=== PATIENT | male | born 1960 | race Caucasian/White ===

== ENCOUNTER 2017-04-12 13:50 | Emergency (ER) | payer BC, OTHER ==
[2017-04-12] MEDS ORDERED: KETOROLAC TROMETHAMINE 60 MG/2 ML VIAL IM ONE ×2 (14:25→14:26)
--- NOTE | 2017-04-12 14:31 | ERNOTE ---
Upper Extremity HPI - Narrative Date of Service: 04/12/17 - General Extremities Pain Location: shoulder: right Time Seen by Provider: 04/12/17 14:29 Source: patient Exam Limitations: no limitations - Immun/Allergies/Home Medications Immunizations: IMMUNIZATION HX Immunizations Up to Date Yes: unsure History of Influenza Vaccine Yes Hx Pneumococcal Vaccination No Allergies/Adverse Reactions: Allergies Allergy/AdvReac Type Severity Reaction Status Date / Time No Known Allergies Allergy Unverified 04/12/17 13:59 Home Medications: HOME MEDICATIONS Acetaminophen with Codeine [Tylenol with Codeine #3 Tablet] 1 - 2 tab PO Q6H PRN #14 tab 04/12/17 [Last Taken Unknown] Cetirizine HCl [Zyrtec] 10 mg PO DAILY PRN 04/12/17 [Last Taken Unknown] Ibuprofen [Motrin] 600 mg PO TID PRN #30 tab 04/12/17 [Last Taken Unknown] - History of Present Illness Narrative: FELL ON RIGHT SHOULDER [employer]STIT[employer] , PLAYING SOFTBALL. C/O RIGHT SHOULDER PAIN. Review of Systems - Review of Systems Constitutional: Present: See HPI Musculoskeletal: Present: See HPI, joint pain All Other Systems: All systems neg except as marked - Patient's Past Medical History Patient History - Medical: No pertinent hx Patient History - Cardiac/Respiratory: No pertinent hx Patient History - Cancer: No Hx of Cancer Patient History - Surgical Procedures: No surgical history Patient History - Other: None - Social History Living Situations: spouse Abuse History: No History of abuse Psych History: No pertinent hx Smoking Status: Never smoker Have you smoked in the past 12 months: No Do you dip or chew tobacco: No Alcohol Use: none Drug Use: none - Immunizations Immunizations Up to Date: Yes - unsure Hx Pneumococcal Vaccination: No History of Influenza Vaccine: Yes Physical Exam - Physical Exam General Appearance: Present: wd/wn, alert, no apparent distress Peripheral Pulses: N=norm/S=strong/W=weak/B=bound/A=absent: Radial (R): Normal Extremity Exam: Present: normal except - - he has point tenderness to right AC area. no deformity noted. No swelling or crepitus across clavicle and shoulder and humerus. he has fair rom but c/o AC soreness with elevation of shoulder above horizontal. Normal distal pulses and sensation and refill. Neurological Exam: Present: alert, oriented Skin Exam: Present: normal color, warm/dry ED Progress - Vital Signs Patient's Vital Signs:: I have reviewed the patient's vital signs. Vital Signs: Vital Signs 04/12/17 13:52 Temperature 35.1 C L Pulse Rate 90 Respiratory 17 Rate Blood Pressure 103/70 O2 Sat by Pulse 93 Oximetry - X-Ray X-Ray #1 X-Ray: shoulder - right shoulder with no sign of acute fx or dislocation. he does have old osteophytes at the distal right clavicle and there is a 5-7 mm of elevation of the clavicle at the a-c joint. no old shoulder xr to compare. - Progress/Reassessment Chief Complaint: Shoulder Injury/Pain Departure Clinical Impression: Contusion of shoulder, right Qualifiers: Encounter type: initial encounter Qualified Code(s): S40.011A - Contusion of right shoulder, initial encounter - Departure Instructions: Shoulder Pain, [id number], Acromioclavicular Separation With Rehab-SportsMed Additional Instructions: Ice to sore area for 20-30 mins every 4 hours for the next 1-2 days. Rest. Follow up with your doctor or othopedist ( Dr. Roland ) for appointment for recheck on Friday. Sling for comfort. Referrals: Kenton Roland MD [Staff Physician] - Prescriptions: Acetaminophen with Codeine [Tylenol with Codeine #3 Tablet] 1 - 2 tab PO Q6H PRN #14 tab PRN Reason: Pain Ibuprofen [Motrin] 600 mg PO TID PRN #30 tab PRN Reason: Pain
--- OUTSIDE RECORDS SUMMARY | 2017-04-12 14:50 | XMS REPORT | Continuity of Care Document ---
:1960 Demographics Phone Unavailable Preferred Language Unknown Marital Status Unknown Baptism Affiliation Unknown Race Unknown Ethnic Group Unknown Author Organization [facility] ([facility]) [place] [address] Phone [phone] Care Team Providers Name Role Phone Unavailable Primary Care Provider Unavailable Source Comments This disclosure is being made pursuant to the Care Everywhere program, applicable federal and state laws, and may not contain all informaitonavailable regarding this patient.[facility] ([facility]) Active Allergies and Adverse Reactions Not on File Current Medications Not on file Active Problems Not on file Social History Tobacco Use Types Packs/Day Years Used Date Never Assessed Plan of Care Health Maintenance Due Date Last Done Comments HCV Screening 1960 Hepatitis B Vaccine (1 of 3 - Primary Series) 1960 Tdap Vaccine 1971 Lipid Disorder Screening 1978 MMR Vaccine 1978 Td Vaccine 1978 Colonoscopy 2010 Prostate Cancer Screening 2010 Influenza Vaccine: Seasonal (#1) 07/01/2016 Results from Last 3 Months Not on file
[2017-04-12 15:08] VITALS: BP 123/77
== END 2017-04-12 15:10 | disposition home or self-care (01) ==
LOC: ER 13:50
DX: S40.011A Contusion of right shoulder, initial encounter (principal); W19.XXXA Unspecified fall, initial encounter; Y93.64 Activity, baseball